=== PATIENT | female | born 1935 | race Caucasian/White ===

== ENCOUNTER 2020-05-29 12:29 | Inpatient (IN) | payer MEDICARE, BC ==
[2020-05-29] VITALS (8 sets, daily range): BP systolic 134–159; BP diastolic 43–98; PULSE 80–97; TEMP 98.7–99.8
[~2020-05-29] VITALS: Ht 154.9 cm; Wt 64.6 kg
--- NOTE | 2020-05-29 16:30 | NUR ---
Patient arrived to surgical floor via EMS. NG in place, placed to LIS, clear drainage with couldy brown strands immediately into suction cannister. Patient is dry heaving as the suction was unhooked during transport. Patient is alert and oriented. Patient is able to participate in admission assessment but cannot tell me what medications she takes and did not bring a medication list. Called patient's to get medications but he seemed unsure. Called patient's pharmacy and got a complete medication list.
[2020-05-29] MEDS ORDERED: KLOR-CON/EF25 MEQ PO (16:39)
[2020-05-29] MEDS ORDERED: ZOCOR 20MG20 MG PO (16:41)
[2020-05-29] MEDS ORDERED: ULTRAM 50MG TAB50 MG PO (16:42)
[2020-05-29] MEDS ORDERED: ZESTRIL 20MG TA20 MG PO (16:43)
[2020-05-29] MEDS ORDERED: PROAIR HFA0.09 MG/AC IH (17:12)
[2020-05-29] MEDS ORDERED: SYNTHROID0.075 MG/T PO (17:13)
[2020-05-29] MEDS ORDERED: NORVASC 10MG10 MG PO (17:14)
--- NOTE | 2020-05-29 17:45 | NUR ---
Patient left floor with pre op nurse via bed. Patient to OR for scheduled ex lap. Surgeon called patient's to inform him of planned procedure.
[2020-05-30] VITALS (8 sets, daily range): BP systolic 116–161; BP diastolic 37–59; PULSE 72–88; TEMP 98.1–100
[2020-05-30 07:14] LABS: ALBUMIN 3.4 gm/dL (3.5-5.0); BILIRUBIN,TOTAL 0.6 mg/dL (0.0-1.0); CALCIUM 8.3 mg/dL (8.4-10.2); CREATININE, serum 0.94 (0.52-1.25); POTASSIUM 4.1 mmol/L (3.4-5.0)
[2020-05-30 07:26] LABS: BASO % 0.1 % (0.0-2.0); GRAN # 11.6 (1.4-6.5); GRAN % 85.4 % (42.2-75.2); HEMOGLOBIN 11.6 g/dl (12.5-16.0); LYMPH # 0.8 (1.2-3.4); LYMPH % 5.9 % (20.0-51.0); MEAN CELL VOLUME 85 fl (80.0-100.0); MEAN CORPUSCULAR HEMOGLOBIN 27 pg (27.0-31.0); MEAN CORPUSCULAR HGB CONC 32 g/dl (33.0-37.0); MEAN PLATELET VOLUME 11.3 fl (7.4-10.4); MONO # 1.1 (0.1-0.6); MONO % 8.2 % (1.7-9.3); PLATELET COUNT 211 K/mm3 (130-400); RED BLOOD COUNT 4.31 M/mm3 (4.10-5.30)
[2020-05-30 07:28] LABS: HEMATOCRIT 36.5 % (37.0-47.0)
--- NOTE | 2020-05-30 08:00 | NUR ---
Patient resting in bedside recliner at this time. Patient is dozing but rouses easily. IVF continue per order. Patient is NPO for ERCP at noon, AM medications held per hospitalist order. Patient denies needs at this time, call light within reach.
--- NOTE | 2020-05-30 08:00 | NUR ---
Patient resting in bed at this time. Patient is alert and oriented, answers questions appropriately. Epidural in place, patient reports that pain is controlled at this time. NG tube to left nare to LIS per order, no significant output since shift change. Patient reports that she is thirsty, provided mouth swabs and a small amount of water to moisten her mouth and informed patient that NPO order is still in place. Patient verbalized understanding and denies further needs at this time, call light within reach.
--- NOTE | 2020-05-30 10:07 | NUR ---
Recording Artist attented clinical rounds with the team. After rounds, SW met with the patient to complete initial intake. The patient lives in [place] with her , Juancarlos # [phone]. The patient's son is a source of support too. The patient uses a walker and her assist with showers. The patient is not interested in [facility] at this time. The patient's PCP is Dr. Leonardo and patient receives medications from [facility] in . The patient does not have advanced directives. The patient plans to return home at discharge with her providing transportation. VIOLA contacted Juancarlos to discuss this plan. He was in agreeance. PT is recommending home at this time. Will continue to monitor.
--- NOTE | 2020-05-30 12:32 | NUR ---
Patient off floor to endoscopy with periop staff via bed. Patient denied questions or needs.
--- NOTE | 2020-05-30 18:49 | NUR ---
Patient returned to floor from endoscopy at approximately 1340. Patient is alert and oriented and pain is well controlled. IVF continue per order. VS WNL. Patient tolerating clear liquids well, denies further needs at this time, call light within reach.
--- NOTE | 2020-05-30 19:15 | NUR ---
NG tube removed by surgeon late this morning. No nausea or vomiting reported. Patient has tolerated clear liquids well. Storm in place per order. Patient ambulated in halls with therapy. Patient denies further needs at this time, call light within reach.
--- NOTE | 2020-05-30 20:00 | NUR ---
PT IN BED. REPORTS GAS PAINS. HAS EPIDURAL INFUSING, HAS SL TO LEFT FOREARM, FLUSHES EASILY. WEARING OXYGEN AT 2L/NC. MIDLINE INCISION NOTED. IS ALERT AND ORIENTED X4.
--- NOTE | 2020-05-30 21:05 | NUR ---
PT AMBULATES IN HALLWAY WITH ASSIST OF ONE, GAIT BELT AND WALKER. EPIDURAL CATHETER INTACT, FOAM WITH DRY DRAINAGE.
[2020-05-31] VITALS (7 sets, daily range): BP systolic 118–140; BP diastolic 53–74; PULSE 77–123; TEMP 98.1–99.6
--- NOTE | 2020-05-31 04:30 | NUR ---
Pt awake, has pain in abdomen, re-oriented to use of Epidural.
--- NOTE | 2020-05-31 06:28 | NUR ---
Continues to moan out loud, reports "I just feel blah". No specific complaint, denies nausea and reports pain to left abdomen "just a little". Using Epidural pain button as needed.
[2020-05-31 06:40] LABS: BASO # 0.1 (0.0-0.2); BASO % 0.7 % (0.0-2.0); EOS # 0.1 (0.0-0.7); EOS % 0.8 % (0-4.0); GRAN # 5.3 (1.4-6.5); GRAN % 68.3 % (42.2-75.2); HEMOGLOBIN 10.6 g/dl (12.5-16.0); LYMPH # 1.5 (1.2-3.4); LYMPH % 19.3 % (20.0-51.0); MEAN CELL VOLUME 87 fl (80.0-100.0); MEAN CORPUSCULAR HEMOGLOBIN 27 pg (27.0-31.0); MEAN CORPUSCULAR HGB CONC 31 g/dl (33.0-37.0); MEAN PLATELET VOLUME 10.7 fl (7.4-10.4); MONO # 0.8 (0.1-0.6); MONO % 10.6 % (1.7-9.3); PLATELET COUNT 180 K/mm3 (130-400); RED BLOOD COUNT 3.98 M/mm3 (4.10-5.30); REDCELL DISTRIBUTION WIDTH-CV 14.2 % (11.5-14.5)
[2020-05-31 06:47] LABS: HEMATOCRIT 34.5 % (37.0-47.0)
[2020-05-31 06:49] LABS: CALCIUM 8.3 mg/dL (8.4-10.2); CREATININE, serum 0.89 (0.52-1.25); POTASSIUM 4.2 mmol/L (3.4-5.0)
--- NOTE | 2020-05-31 07:00 | NUR ---
Lying in bed with eyes open. Having minimal pain in lower abd. Patient has epidural, no redness/swelling/discharge at site, tape intact. Dressing to mid abd incision intact with old drainage noted through the dressing. Patient says that she has not been able to pass gas at this time. Denies any additional needs.
--- NOTE | 2020-05-31 09:21 | NUR ---
Patient ambulating in halls with PT and use of walker. Gait slow and steady. Patient grunts at times.
--- NOTE | 2020-05-31 09:49 | NUR ---
Initial visit; Patient thanked Picker for looking in on her and providing Spiritual Care. Following prayer patient was receptive to Picker contacting her religious letting them know of her hospitalization. Picker did so and also changed her Admission records Mandaen Preference from No Preference to Jainism.
--- NOTE | 2020-05-31 10:54 | NUR ---
Lying in bed with eyes open. Having some discomfort in abd. Asked patient if she has used her buttong for her epidural. Patient says that she has not and uses it at this time. Patient said she was having some nausea earlier but has resolved at this time. Patient denies additional needs.
--- NOTE | 2020-05-31 12:30 | NUR ---
Lying in bed with eyes closed. Patient has clear liquid lunch tray. Patient says that she does not have much of an appetite. Encourage patient to take in what she can take in but not to force it. Having minimal pain at this time. Patient repositioned in bed to comfortable position. Denies additional needs at this time.
--- NOTE | 2020-05-31 13:02 | NUR ---
Patient explains that cold liquids cause her stomach to increase in pain. Provided room temp water to the patient. Was nauseated when attempting to eat but better at this time. Having some pain in abd and will use the epidural pump as needed. Would like to allow stomach to settle at this time and then will go for a walk later. Denies additional needs.
--- NOTE | 2020-05-31 14:15 | NUR ---
PTin room to work with the patient.
--- NOTE | 2020-05-31 15:27 | NUR ---
Lying in bed in supine position with eyes closed. Respirations even and unlabored. No signs or symptoms of discomfort noted at this time.
--- NOTE | 2020-05-31 15:40 | NUR ---
Aide obtained vital signs via machine and pulse high per machine. This nurse manually counts radial pulse and gets 79 for heart rate. Patient says she is having minimal pain at this time, 2/10 in abd. Uses the epidural as needed. Says that she was able to take a little bit of a nap and is not feeling too bad at this time. Encouraged patient to cough and take deep breaths, patient does at this time. Patient declines any further needs or concerns at this time.
--- NOTE | 2020-05-31 18:00 | NUR ---
Sitting up in bed attempting to eat clear liquid dinner. Patient explains that she does not have much of an appetite. Explain that she does not have to force herself to eat all of the food. Patient says that she is done at this time. Patient continues to cough and deep breathe. Denies any additional needs or concerns at this time.
[2020-06-01] VITALS (7 sets, daily range): BP systolic 139–185; BP diastolic 54–73; PULSE 77–91; TEMP 98.7–100.3
--- NOTE | 2020-06-01 05:03 | NUR ---
Patient has rested well throughout the night. Midline incision is open to air. Pema are intact. No redness or drainage to site. Epidural continues. Patient denies pain. Bowel sounds are hypoactive. Denies gas. Storm continues to drain clear, yellow urine. Continues to cough and deep breathe as directed. Will continue to monitor patient.
[2020-06-01 06:39] LABS: BASO % 0.4 % (0.0-2.0); EOS # 0.1 (0.0-0.7); EOS % 0.7 % (0-4.0); GRAN # 5.2 (1.4-6.5); GRAN % 74.6 % (42.2-75.2); HEMATOCRIT 37.7 % (37.0-47.0); HEMOGLOBIN 11.6 g/dl (12.5-16.0); LYMPH # 0.9 (1.2-3.4); LYMPH % 12.6 % (20.0-51.0); MEAN CELL VOLUME 86 fl (80.0-100.0); MEAN CORPUSCULAR HEMOGLOBIN 26 pg (27.0-31.0); MEAN CORPUSCULAR HGB CONC 31 g/dl (33.0-37.0); MEAN PLATELET VOLUME 10.8 fl (7.4-10.4); MONO # 0.8 (0.1-0.6); MONO % 11.4 % (1.7-9.3); PLATELET COUNT 209 K/mm3 (130-400); RED BLOOD COUNT 4.39 M/mm3 (4.10-5.30); REDCELL DISTRIBUTION WIDTH-CV 13.9 % (11.5-14.5)
[2020-06-01 06:49] LABS: CALCIUM 8.4 mg/dL (8.4-10.2); CREATININE, serum 0.96 (0.52-1.25); POTASSIUM 4.6 mmol/L (3.4-5.0)
--- NOTE | 2020-06-01 10:16 | NUR ---
Management Specialist met with the patient to discuss HHS. VIOLA presented Medicare.gov's list of hydrogeology professor in the [place] area. The patient chose [facility] [facility]. VIOLA faxed referral. VIOLA presented the IM form to the patient. The patient understood and gave VILOA permission to sign the form. A copy was provided to the patient and the original was placed in the chart.
--- NOTE | 2020-06-01 11:00 | NUR ---
Patient has been very naueous this morning. She has been given zofran and reglan. The reglan seems to be working better. She was finally resting comfortably after getting it. Her IV infiltrated this morning. New IV started to left forearm. Pema to abdomen are intact. No reddness, no drainage to incision. Storm secured to leg, urine yellow and clear, output continues to be low. Minimal complaints of pain, she stated her pain has been controlled with the epidural. No other changes at this time. Call light within reach.
--- NOTE | 2020-06-01 18:30 | NUR ---
Patient is finally resting. Her nausea has been better since getting phenergan. She has been made NPO. Her urine output has been 450 out this shift. Her pain continues to be controlled with the epidural. She did not get up today because she did not think could tolerate it. No other changes at this time. Call light within reach.
[2020-06-02] VITALS (68 sets, daily range): BP systolic 119–183; BP diastolic 56–89; PULSE 64–135; TEMP 98–99.9; O2SAT 87–96
--- NOTE | 2020-06-02 03:34 | NUR ---
Pt is currently back in bed. Pt did call a little while ago and requested to sit on the toliet. Pt has been given nausea medication when she was able. Pt has complained of alot of stomach pain and she has had nausea and has been vomitting. Pt has been given all that she can have for nausea medication. Pt is still stated that she has never had so much pain and felt so bad. Pt was encouraged to press her pain button when she feels that she needs it for pain. Pt has her call light [employer]. She was informed that I would contact the hospitalist to inform her about the change in the pts condition.
--- NOTE | 2020-06-02 04:38 | NUR ---
Contacted Emily the hospitalist and she came to assesst he pt. The pt was complaining of upper abdomen pain and she has having a lot of nausea throughout the night. After trying all that she could have for nausea and trying a cool pack and a warm blanket on her abdomen, nothing seemed to be helping. Emily contacted Dr. Gordon and she ordered a NG tube to be placed at this time, a 14 fr NG was placed. As of this time which is 0440 there is 450cc in the canister. Pt did not tolerated the NG placement. She did state that it was very painful. Pt also has an order for a CT of the abdomen this morning. I called Radiology and once they are able I will transport pt down to have the CT done. Pt has been informed of everything that has been done and what the plan is for now. Pt has her call light and her pain button wtihin reach at this time.
[2020-06-02 05:09] LABS: BASO % 0.3 % (0.0-2.0); GRAN # 12.4 (1.4-6.5); GRAN % 89.8 % (42.2-75.2); HEMATOCRIT 38.8 % (37.0-47.0); HEMOGLOBIN 12.6 g/dl (12.5-16.0); LYMPH # 0.5 (1.2-3.4); LYMPH % 3.8 % (20.0-51.0); MEAN CELL VOLUME 85 fl (80.0-100.0); MEAN CORPUSCULAR HEMOGLOBIN 28 pg (27.0-31.0); MEAN CORPUSCULAR HGB CONC 33 g/dl (33.0-37.0); MEAN PLATELET VOLUME 10.1 fl (7.4-10.4); MONO # 0.8 (0.1-0.6); MONO % 5.7 % (1.7-9.3); PLATELET COUNT 245 K/mm3 (130-400); RED BLOOD COUNT 4.58 M/mm3 (4.10-5.30); REDCELL DISTRIBUTION WIDTH-CV 13.5 % (11.5-14.5)
[2020-06-02 05:11] LABS: GASTROCCULT POSITIVE; pH GASTRIC CONTENTS 1
[2020-06-02 05:17] LABS: CALCIUM 8.4 mg/dL (8.4-10.2); CREATININE, serum 0.88 (0.52-1.25); POTASSIUM 3.5 mmol/L (3.4-5.0)
--- NOTE | 2020-06-02 06:18 | NUR ---
Pt is currently back in her room. Pt was taken down for a CT of the abdomen. Pt has had a total of 850 out of her NG tube. Pt is currently resting in her bed. She has her call light within reach and her bed is in lowest position.
--- NOTE | 2020-06-02 09:34 | NUR ---
Psychiatric Registered Nurse attended clinical rounds with the team. The patient had an NG tube placed. Will continue to monitor.
--- NOTE | 2020-06-02 10:04 | NUR ---
Patients heart is irregular this morning. Called for an EKG, notified Dr Gonzales. EKG showed AFIB with RVR. Order for cardiology consult done, Dr Claros notified. Patient is being started on telemetry. Dr Claros will come see the patient later this morning. Patient denies any symptoms, denies chest pain. No other changes at this time. NG still to low intermitten suction. Drainage is dark green. Patients abdomen is less distended today. She is resting comfortably at this time. Call light within reach.
--- NOTE | 2020-06-02 19:00 | NUR ---
Patient has been doing well this afternoon. SHe is getting potassium replacement IV. She got a PICC line with intentions to get TPN tomorrow. Patient has not epidural discontinued. IVF's infusing. She had 700ml of dark green drainage out this shift. Denies nausea. Explained to notify us she starts to have pain. She is passing flatus this afternoon. While giving bedside shift report she would like to try having a bowel movement. The RETIREMENT SPECIALIST's are helping her. Dr Claros has not seen patient yet, he was in the hospital earlier but did not stop in her room. Attempted to call again but did not get a hold him. She continues to be in afib. PRN dose of metoprolol given once this afternoon as ordered for heart rate of 125. No other changes at this time. Call light within reach.
--- NOTE | 2020-06-02 19:43 | NUR ---
Pt valentineetnly resting in bed. Pt heart rate has been up to 150 she is currentlly at 135. Dr. Rhodes was just notitifed he informed me that he would get back to me on her. Pt has her call light within reach and her bed is in lowest position.
--- NOTE | 2020-06-02 19:50 | NUR ---
Received report from ERAN Calderon. Pt currently sitting up and bed and has not compalints at this time Pt has her call light wtihin reach and her bed is in lowest position.
--- NOTE | 2020-06-02 20:03 | NUR ---
Report was given by ERAN Calderon. Pt is currently lying in bed. Pt has her call light and her bed is in lowest position. Pt stated that she feels much better today.
--- NOTE | 2020-06-02 20:50 | NUR ---
Pt heart rate on the tele monitor was noted to be in the 150's and back down to like 118. Dr. Claros was contacted at this time to update him on the pts status.
--- NOTE | 2020-06-02 21:22 | NUR ---
RECEIVED REPORT FROM ERAN GOEL FROM SURGICAL. AWAITING ARRIVAL OF PT TO ICU 8.
--- NOTE | 2020-06-02 21:41 | NUR ---
SPOKE TO DR KHAN FOR CLARIFICATION ON AMIO GTT ORDERS, SEE MAR.
--- NOTE | 2020-06-02 21:44 | NUR ---
Pt is currently sitting up in bed. Pt was contacted and I informed him on her status and that she would be transfered to ICU. Pt was also informed about the changes in her status and why she was being transferred. Pt currently has a mendoza in place with yellow clear urine. Pt NG tube is in place and its hooked up to low intermittent suction. Pt has had one bowel movement since the shift has begin. Dr. Claros was contacted and he wanted her MICU status. tumblers supervisor has also contacted him. Report was given to ERAN Carlin down in ICU. I did inform her to verify all orders with Dr. Claros. Pt will be transferred soon pt is currently using the restroom. Pt has been a two person assists cherelle.
--- NOTE | 2020-06-02 22:30 | NUR ---
Pt belongings were gathered and pt was getting ready to be transferred to ICU. Pt was a little sad when thinking of all that has changed in the last couple of days. I informed the pt that I did speak with her and he knows that she will be transferred. Pt was undpated on all that we will do to get her transferred. Pt has new sheets and applied to her bed at this time. Pt feels better know and is ready to transfer. Atif Rausch RN helped the aide to transport pt to ICU.
--- NOTE | 2020-06-02 22:45 | NUR ---
PT ARRIVES TO ICU 8 VIA STRETCHER ON RA AND TRASNFERS X2 ASSIST TO ICU BED, SLOW STEADY GAIT NOTED. PT DOES C/O LEFT LEG BEING WEAK AND THIGH ACHY. NOTED MIDLINE INCISION NO REDNESS OR DRAINAGE AND BETSEY INTACT. AMIO BOLUS STARTED WITH TWO RN VERIFICATION WITH ERAN COATES. PT PLACED ON BEDSIDE CONTINUOUS MONITOR. PT EDUCATED ON TRANSFER, AMIO, AND CALL LIGHT. VERBALIZED UNDERSTANDING. PT DOES C/O SOME PAIN IN ABDOMEN /10 BUT STATES IS TOLERABLE. FC PATENT AND DRAINING TO GRAVITY. SCDs IN PLACE. PT CHANGED TO YELLOW GOWN AND FALL RISK SIGN AND BRACELET IN PLACE. NOTED HR TO BE IRREGULAR FROM 120/140s AT THIS TIME. PT STATES THAT SHE DOES NOT FEEL IT. WILL MONITOR CLOSELY. NGT TO LT NARE AT 55 CM PLACED TO LIS.
--- NOTE | 2020-06-02 23:15 | NUR ---
PT PLACED ON 2L VIA NC. POX WAS DROPPING TO 88% WHILE PT WAS TRYING TO REST, POX INCREASES TO 95% WITH O2.
[2020-06-03] VITALS (811 sets, daily range): BP systolic 132–164; BP diastolic 64–78; PULSE 62–103; TEMP 97.7–99; O2SAT 86–100
--- NOTE | 2020-06-03 00:15 | NUR ---
PER MT, PT HAS CONVERTED TO SR IN THE 70s. PT REMAINS ASLEEP AT THIS TIME. NO ACUTE S/S OF DISTRESS NOTED. VSS.
--- NOTE | 2020-06-03 05:20 | NUR ---
NOTED WITH [facility] AFTER WASTIN 20ML, SOME WHITE PARTICLES FLOATING IN BLOOD SAMPLE, DISCUSSED WITH DR LEE WITH IN[facility], NEW ORDER RECEIVED.
[2020-06-03 05:32] LABS: BASO % 0.3 % (0.0-2.0); EOS % 0.3 % (0-4.0); GRAN # 8.4 (1.4-6.5); GRAN % 77.9 % (42.2-75.2); LYMPH # 1.1 (1.2-3.4); LYMPH % 9.8 % (20.0-51.0); MEAN CELL VOLUME 85 fl (80.0-100.0); MEAN CORPUSCULAR HEMOGLOBIN 27 pg (27.0-31.0); MEAN CORPUSCULAR HGB CONC 32 g/dl (33.0-37.0); MEAN PLATELET VOLUME 10.4 fl (7.4-10.4); MONO # 1.2 (0.1-0.6); MONO % 11.3 % (1.7-9.3); PLATELET COUNT 207 K/mm3 (130-400); REDCELL DISTRIBUTION WIDTH-CV 13.4 % (11.5-14.5)
[2020-06-03 05:33] LABS: HEMATOCRIT 34.7 % (37.0-47.0)
[2020-06-03 05:40] LABS: CALCIUM 7.9 mg/dL (8.4-10.2); CREATININE, serum 0.77 (0.52-1.25); POTASSIUM 3.7 mmol/L (3.4-5.0)
[2020-06-03 07:28] LABS: CHOLESTEROL 102 mg/dL (120-200); TRIGLYCERIDE 97 mg/dL
--- NOTE | 2020-06-03 11:09 | NUR ---
Initial visit; Patient thanked Collaborative Physician for looking in on her and offering encouragement, comfort and prayer.
--- NOTE | 2020-06-03 11:35 | NUR ---
PT is now recommmending home if able. OT is recommending that the patient will likely require post-acute rehab. VIOLA met with the patient and the patient's , Juancarlos, to discuss this. Juancarlos reports that the patient has been wobbling while walking. The patient and her report that they hope to be able to safely return home, but would be agreeable to post-acute rehab if she does not make progress. The patient and her prefer [facility]. They did not have a second preference at this time and would like some time to think about their second preference. SW contacted and faxed a referral to Regina at [facility]. SW awaiting their screen and will continue to follow.
[2020-06-03 12:01] LABS: ALBUMIN 2.9 gm/dL (3.5-5.0); BILIRUBIN,TOTAL 0.7 mg/dL (0.0-1.0); CALCIUM 8.1 mg/dL (8.4-10.2); CREATININE, serum 0.79 (0.52-1.25); PHOSPHOROUS 2.9 mg/dL (2.5-4.5); POTASSIUM 3.8 mmol/L (3.4-5.0); TOTAL PROTEIN 5.2 gm/dL (6.4-8.2)
[2020-06-03 12:08] LABS: PRE ALBUMIN 9.3 mg/dL (17.6-36.0)
--- NOTE | 2020-06-03 14:32 | NUR ---
Regina, at [facility], reports that they would be able to accept the patient for a skilled stay and that they would not require a COVID test. Regina states that they do a COVID test on the patient when they arrive to their facility. Regina reports that they would require a DPOA-HC, if the patient is unable to sign for her own paperwork. VIOLA attempted to meet with the patient to update and discuss a DPOA-HC. The patient had a puke bag up to her mouth and was moaning. SW to follow up with her at a later time. VIOLA then contacted and updated the patient's , Juancarlos. Juancarlos reports that his does not need to be getting intensive therapy and can do exercises at home. He states that they really are not interested in post-acute rehab now. VIOLA discussed how we can keep [facility] updated, in the event that the patient is not safe to return home. The patient's was agreeable to this, but reports that he would like for her to return home with him. SW to continue to follow.
--- NOTE | 2020-06-03 15:08 | NUR ---
Disposal Plant Operator updated Ingrid PARTIDA on patient status.
--- NOTE | 2020-06-03 19:05 | NUR ---
RECEIVED REPORT FROM ERAN AMAYA. PT SLEEPING AT THIS TIME ON 3L VIA NC. FC PATENT AND DRAINING TO GRAVITY. CALL LIGHT WITHIN REACH. VSS.
[2020-06-04] VITALS (713 sets, daily range): BP systolic 120–168; BP diastolic 61–78; PULSE 59–78; TEMP 97.8–98.8; O2SAT 85–100
[2020-06-04 05:19] LABS: CALCIUM 7.8 mg/dL (8.4-10.2); CREATININE, serum 0.76 (0.52-1.25); MAGNESIUM 2.1 mg/dL (1.6-2.3); PHOSPHOROUS 2.6 mg/dL (2.5-4.5)
--- NOTE | 2020-06-04 19:05 | NUR ---
RECEIVED REPORT FROM ERAN FLORES. PT SITTING UP IN RECLINER ON 3L VIA NC. VSS. CALL LIGHT WITHIN REACH. FC PATENT AND DRAINING TO GRAVITY. NOTED NGT TO LT NARE AT 55 CM, CLAMPED.
--- NOTE | 2020-06-04 19:44 | NUR ---
BLISTERS UP TOP OF RT BUTTOCK BUSTED OPEN WHEN PT SAT DOWN ONTO BSC. PATTED DRY AND AQUECELL DRESSING IN PLACE AT THIS TIME.
[2020-06-05] VITALS (330 sets, daily range): BP systolic 131–159; BP diastolic 54–84; PULSE 61–78; TEMP 97.7–98.7; O2SAT 92–99
[2020-06-05 05:59] LABS: CALCIUM 7.4 mg/dL (8.4-10.2); CREATININE, serum 0.72 (0.52-1.25); MAGNESIUM 2.2 mg/dL (1.6-2.3); PHOSPHOROUS 3.7 mg/dL (2.5-4.5); POTASSIUM 4.1 mmol/L (3.4-5.0)
--- NOTE | 2020-06-05 14:40 | NUR ---
REPORT GIVEN TO ERAN LEÓN ON SURGICAL FLOOR. PATIENT TAKEN UP TO SURGICAL ROOM 347
--- NOTE | 2020-06-05 14:45 | NUR ---
Received patient from ICU. Alert. Hard of hearing. No c/o pain or nausea. NG clamped. TPN infusing per right PICC.
--- NOTE | 2020-06-05 16:45 | NUR ---
KORINA wallace. MAURICE núñez per order from Dr. Carmen.
--- NOTE | 2020-06-05 18:00 | NUR ---
Ambulatory with assist to bathroom for bowel movement.
--- NOTE | 2020-06-05 21:00 | NUR ---
PT HAS INCONTINENT STOOL IN BED. PATIENT UPSET THAT SHE WASN'T ABLE TO CONTROL IT. BARAKAT CATHETER IN PLACE WITH YELLOW URINE DRAINING. HAS RT PICC WITH TPN INFUSING. ABDOMEN WITH ACTIVE BOWEL SOUNDS, SMALL MIDLINE WITH BETSEY INTACT. HS MEDS GIVEN. DENIES PAIN AT THIS TIME.
[2020-06-06] VITALS (7 sets, daily range): BP systolic 139–158; BP diastolic 50–57; PULSE 65–75; TEMP 97.8–98.7
--- NOTE | 2020-06-06 01:20 | NUR ---
PT YELLING FOR HELP, STANDING AT BEDSIDE, NEEDS TO HAVE BM. ASSISTED TO BSD. HAS SMALL SOFT BM, BACK TO BED WITH HELP. COMPLAINS OF ABDOMINAL PAIN, MEDICATED WITH MORPHINE 4MG IVP FOR PAIN 05/06.
--- NOTE | 2020-06-06 05:02 | NUR ---
Pt in bed, denies pain. TPN infusing per PICC. No further BM's.
--- NOTE | 2020-06-06 06:00 | NUR ---
Pt up to BSC for small loose BM.
[2020-06-06 06:56] LABS: CALCIUM 7.7 mg/dL (8.4-10.2); CREATININE, serum 0.76 (0.52-1.25); MAGNESIUM 2.2 mg/dL (1.6-2.3); PHOSPHOROUS 3.1 mg/dL (2.5-4.5); POTASSIUM 3.9 mmol/L (3.4-5.0)
--- NOTE | 2020-06-06 08:40 | NUR ---
Patient in bed resting. Alert and oriented. Assesssment complete. PICC line to [place] without complications, TPN infusing per orders. Midline incision with tatyana intact. Patient states mid epigastric discomfort when taking PO fluids. Storm to dependent drainage with clear yellow urine in bag. Patient on 1.5 of oxygen via NC. Denies further needs at this time.
--- NOTE | 2020-06-06 09:00 | NUR ---
Patient up to BSC with x 1 assist. States she feels like she needs to go to the restroom or pass gas. Was unable to do so. Smears noted. No further needs at this time.
--- NOTE | 2020-06-06 09:57 | NUR ---
Hot Dip Galvanizer attended clinical rounds with the team. The patient's was present. After rounds, SW met with the patient and the patient's to revisit the discharge plan. The patient and her would rather go home with [facility] and not SNF at [facility]. Will continue to follow.
--- NOTE | 2020-06-06 10:13 | NUR ---
Patient sitting up in recliner, spouse at bedside.
--- NOTE | 2020-06-06 12:20 | NUR ---
Patient up to bedside comode, small loose BM
--- NOTE | 2020-06-06 12:40 | NUR ---
Patient refusing lunch, States that her taking po other than water is the reason she is having diarrhea.
--- NOTE | 2020-06-06 13:59 | NUR ---
Patient resting in bed. Denies further needs at this time.
--- NOTE | 2020-06-06 16:05 | NUR ---
Patient in bed resting. Denies further needs at this time.
--- NOTE | 2020-06-06 16:09 | NUR ---
Ems Educator updated Portia with Ingrid PARTIDA.
--- NOTE | 2020-06-06 17:11 | NUR ---
Patient up to [facility], had medium soft formed stool. Encouraged patient to attempt increase oral intake.
--- NOTE | 2020-06-06 18:31 | NUR ---
Patient has done well throughout the day. Continues to deny pain. Patient repositions in bed independently. Has been up to commode multiple times today. TPN continues to infuse per orders. Storm maintained to dependent drainage. Denies further needs at this time. Will report off to receptionist/telephone operator.
--- NOTE | 2020-06-06 19:59 | NUR ---
Received report from ERAN Baron. Pt lying in bed awake pt has call light within reach and her bed is in lowest position.
[2020-06-07 04:01] VITALS: BP 138/84; PULSE 74; TEMP 98.1
--- NOTE | 2020-06-07 04:50 | NUR ---
Pt is currently sleeping in bed. Pt has not comlained of any pain throughout the shift. Pt has been up a couple of times to use the bedside commode. Pt has her call light within reach.
--- NOTE | 2020-06-07 07:13 | NUR ---
Lying in bed with eyes open. Denies pain. Explains that she had a loose BM in her brief that she could not control. Reassurance provided and patient cleaned at this time. Storm to dependent drainage draining clear yellow urine. Mid abd incision with tatyana intact, edges well approximated, no redness/swelling/discharge. Patient does have a area to right lower back covered with a Mepilex. Patient denies additional needs at this time.
--- NOTE | 2020-06-07 07:17 | NUR ---
Reported off to ERAN Carvalho. Pt is currently awake in bed. Pt was assisted with getting cleaned up in bed. Pt is currently lying in bed and her call light is within reach.
[2020-06-07 07:41] LABS: CALCIUM 7.5 mg/dL (8.4-10.2); CREATININE, serum 0.73 (0.52-1.25); MAGNESIUM 2.2 mg/dL (1.6-2.3); PHOSPHOROUS 3.4 mg/dL (2.5-4.5); POTASSIUM 3.6 mmol/L (3.4-5.0)
[2020-06-07 07:54] VITALS: BP 139/51; PULSE 61; TEMP 99.3
--- NOTE | 2020-06-07 09:16 | NUR ---
Sitting up in bed talking with . Voices no further needs at this time.
--- NOTE | 2020-06-07 10:20 | NUR ---
Sitting up in chair with eyes open, spouse in room with the patient. ELVIA Phillip, in to see the patient. Encouraged use of incentive spirometer, patient shows proper use of incentive spirometer. Mid abd incision with edges well approximated, no redness/swelling/discharge. Site cleaned with alcohol pads. Removed 13 tatyana without difficulty. Patient tolerates well. Denies any additional needs at this time.
[2020-06-07 12:13] VITALS: BP 137/54; PULSE 68; TEMP 99
--- NOTE | 2020-06-07 12:14 | NUR ---
Sitting up in chair. Able to tolerate about 20% of low fiber lunch. Remains sitting up in chair at this time, spouse remains with patient. Patient denies any additional needs at this time.
--- NOTE | 2020-06-07 12:22 | NUR ---
First visit from the headlight adjuster. No needs right now.
--- NOTE | 2020-06-07 15:55 | NUR ---
Patient assisted back to bed. Denies pain at this time. Warm blankets provided. Patient denies additional needs at this time.
[2020-06-07 16:38] VITALS: BP 169/55; PULSE 72; TEMP 98.9
--- NOTE | 2020-06-07 17:21 | NUR ---
Patient up to BSC. Had medium loose brown stool. Patient straining to have bowel movement and small rectal prolapse noted. Pushed back into rectum. Explain to the patient to not strain when having bowel movements as it is causing her to develop a prolapse. Patient voices understanding. Assisted back to bed into comfortable position. Denies additional needs at this time.
[2020-06-07 19:21] VITALS: BP 161/47; PULSE 72; TEMP 98.3
[2020-06-07 23:22] VITALS: BP 137/51; PULSE 59; TEMP 98.2
--- NOTE | 2020-06-08 02:42 | NUR ---
Patient has rested well throughout the night. Complained of pain 6/10 at the beginning of the shift and PRN Morphine administered. This was effective. PICC line to [place] continues to have TPN infusing. Mepilex noted to left back. Patient continues on 1L of oxygen via nasal cannula. Storm catheter continues to drain clear, yellow urine. Midline incision appears to be healing well. [place] have been removed. Patient takes medications one at a time with water. No difficulties noted. Will continue to monitor patient.
[2020-06-08 03:25] VITALS: BP 149/51; PULSE 67; TEMP 98.3
[2020-06-08 06:37] LABS: MEAN CELL VOLUME 85 fl (80.0-100.0); MEAN CORPUSCULAR HGB CONC 31 g/dl (33.0-37.0); MEAN PLATELET VOLUME 10.7 fl (7.4-10.4); PLATELET COUNT 275 K/mm3 (130-400); RED BLOOD COUNT 3.55 M/mm3 (4.10-5.30)
[2020-06-08 06:39] LABS: HEMATOCRIT 30.1 % (37.0-47.0); HEMOGLOBIN 9.4 g/dl (12.5-16.0); MEAN CORPUSCULAR HEMOGLOBIN 26 pg (27.0-31.0)
[2020-06-08 06:51] LABS: ALBUMIN 2.6 gm/dL (3.5-5.0); BILIRUBIN,TOTAL 0.3 mg/dL (0.0-1.0); CALCIUM 7.4 mg/dL (8.4-10.2); CREATININE, serum 0.71 (0.52-1.25); MAGNESIUM 2.2 mg/dL (1.6-2.3); PHOSPHOROUS 3.7 mg/dL (2.5-4.5); POTASSIUM 3.8 mmol/L (3.4-5.0)
[2020-06-08 06:58] LABS: PRE ALBUMIN 12.9 mg/dL (17.6-36.0)
[2020-06-08 07:52] LABS: BAND 5 % (0-10); BURR CELLS 1+; EOSINOPHIL 5 % (0-4); HYPOCHROMIA 1+; LYMPHOCYTE 29 % (20.0-51.0); METAMYELOCYTE 1 % (0-0); NEUTROPHILS 56 % (42.0-75.2); PLATELET ESTIMATE NORMAL (NORMAL); SCHISTOCYTES 1+
[2020-06-08 07:54] VITALS: BP 137/64; PULSE 60; TEMP 98.3
--- NOTE | 2020-06-08 08:23 | NUR ---
Patient assisted up to chair, she had a little breakfast. She is weak. She is feeling "bloated" this am. She is belching. Her abdomen is distented, bowel sounds heard. midline incision edges well approximated. Scds. Air mattress applied to bed, heel protectors provided, skin integrety a concern. Dyspnea with exertion & at rest. O2 on. Picc to Rue with Tpn per orders. Tele on Vss. rounded & plan of care reviewed. Will closely monitor
--- NOTE | 2020-06-08 09:55 | NUR ---
Insurance Claims Specialist faxed updates to Regina at [facility].
--- NOTE | 2020-06-08 10:00 | NUR ---
Geropsychologist met with the patient and her , Juancarlos. They are refusing the hospitalist recommendation of post acute rehab. The patient states her son and daughter live two blocks from their home and they assist. They state that last time the patient was in rehab she was in tears because it was so bad and will not return. They were agreeable to [facility]. Will continue to monitor.
[2020-06-08 11:34] VITALS: BP 146/62; PULSE 62; TEMP 97.9
--- NOTE | 2020-06-08 12:21 | NUR ---
Patient sitting up in chair, eating lunch. Her at bedside. Social work has rounded & discussed discharge planning. No interest in a rehab facility, they want to discharge home.
[2020-06-08 15:44] VITALS: BP 131/44; PULSE 65; TEMP 98.1
--- NOTE | 2020-06-08 16:20 | NUR ---
Patient has been up to the bathroom. Steady gait with walker. Spoke with Hospitalist Uriel Suarez. Ultram orders for pain. Storm to be removed once 24hr urine collected. Patient ambulated the halls this afternoon with o2. dyspnea with exertion, she expressed she felt like she ran 10 miles. Will monitor.
[2020-06-08 18:09] LABS: 12 HR URINE TOTAL VOLUME 0.38 L
--- NOTE | 2020-06-08 19:06 | NUR ---
Patient resting in chair. She was up to the bathroom. passed flatus, no stool. Patient mendoza was removed per orders once 24 hours urine completed. Patient had minimal interest in dinner. Encouraged her to drink ensure. Bedside report to Jessica Lugo
[2020-06-08 20:22] VITALS: BP 138/49; PULSE 60; TEMP 98.5
[2020-06-09 00:04] VITALS: BP 154/50; PULSE 61; TEMP 97.9
[2020-06-09 04:11] VITALS: BP 140/51; PULSE 66; TEMP 97.8
--- NOTE | 2020-06-09 04:35 | NUR ---
Patient has rested well throughout the night. During assessment, patient noted to be alert and oriented. She called out and requested help getting into bed. When this nurse came into her room, patient stated that everyone had left her and that she didn't know what to do. This nurse reoriented patient and assisted her into bed. Gait noted to be slow and steady. Utilizes walker for ambulation. Able to use the restroom independently and demonstrates correct marisel-care. Patient noted to grimace when ambulating, but refuses pain medication when offered. Bed alarms on d/t intermittent confusion. Will continue to monitor.
[2020-06-09 06:38] LABS: MEAN CELL VOLUME 85 fl (80.0-100.0); MEAN CORPUSCULAR HGB CONC 32 g/dl (33.0-37.0); MEAN PLATELET VOLUME 10.3 fl (7.4-10.4); PLATELET COUNT 302 K/mm3 (130-400); RED BLOOD COUNT 3.64 M/mm3 (4.10-5.30); REDCELL DISTRIBUTION WIDTH-CV 14.5 % (11.5-14.5)
[2020-06-09 06:39] LABS: HEMOGLOBIN 9.8 g/dl (12.5-16.0); MEAN CORPUSCULAR HEMOGLOBIN 27 pg (27.0-31.0)
[2020-06-09 06:51] LABS: CALCIUM 7.7 mg/dL (8.4-10.2); CREATININE, serum 0.72 (0.52-1.25); POTASSIUM 4.3 mmol/L (3.4-5.0)
[2020-06-09 07:38] LABS: BAND 9 % (0-10); EOSINOPHIL 4 % (0-4); LYMPHOCYTE 22 % (20.0-51.0); METAMYELOCYTE 2 % (0-0); NEUTROPHILS 54 % (42.0-75.2); PLATELET ESTIMATE NORMAL (NORMAL)
[2020-06-09 08:04] VITALS: BP 129/46; PULSE 61; TEMP 97.9
[2020-06-09] MEDS ORDERED: ELIQUIS 2.5 PO (08:47)
[2020-06-09] MEDS ORDERED: CORDARONE200 MG/TAB PO (08:48)
[2020-06-09] MEDS ORDERED: ULTRAM 50MG TAB50 MG PO (08:49)
--- NOTE | 2020-06-09 09:30 | NUR ---
Patient alert and oriented, answers questions appropriately. See assessment. Abdomen soft, non tender, non distended. Bowel sounds active x4 quads. +Flatus. +Bowel movement. Urinating adequate amounts. Abdominal incisions with edges well approximated, no redness or drainage noted. Post op exercises reviewed with patient. No c/o at this time.
--- NOTE | 2020-06-09 09:34 | NUR ---
The patient is to discharge home today, 06/09 with [facility] and receiving PT/OT/Nursing services. VIOLA presented the IM form to the patient. She understood and gave VIOLA permission to sign on her behalf. A copy was provided to the patient and the original was placed in the chart. VIOLA faxed orders to Portia at [facility]. There are no additional needs at this time.
--- NOTE | 2020-06-09 12:48 | NUR ---
Discharge instructions reviewed with patient and spouse, verbalized understanding. Discharged via wheelchair to auto/home with spouse at 1200.
== END 2020-06-09 12:00 | disposition home health service (06) | DRG 336 ==
LOC: MEDICAL 12:29 → SURG 15:10 → ICU 06-02 21:20 → SURG 06-05 14:57
PROVIDERS: Dietitian, Registered; Internal Medicine Critical Care Medicine; Internal Medicine Interventional Cardiology; Nurse Practitioner Family; Physician Assistant; Student in an Organized Health Care Education/Training Program; Surgery; ADMIT Internal Medicine
PROC: 0DNW0ZZ Release Peritoneum, Open Approach (ICD-10-PCS; principal; 2020-05-29 18:30)
PROC: 3E0436Z Introduction of Nutritional Substance into Central Vein, Percutaneous Approach (ICD-10-PCS; 2020-06-02)
PROC: 02HV33Z Insertion of Infusion Device into Superior Vena Cava, Percutaneous Approach (ICD-10-PCS; 2020-06-02)
DX: K56.52 Intestinal adhesions [bands] with complete obstruction (principal); E44.0 Moderate protein-calorie malnutrition; I48.91 Unspecified atrial fibrillation; I10 Essential (primary) hypertension; E78.5 Hyperlipidemia, unspecified; J45.909 Unspecified asthma, uncomplicated; N63.0 Unspecified lump in unspecified breast; Z66 Do not resuscitate; E03.9 Hypothyroidism, unspecified; F41.9 Anxiety disorder, unspecified; K59.00 Constipation, unspecified; K56.7 Ileus, unspecified; Z85.43 Personal history of malignant neoplasm of ovary; Z90.710 Acquired absence of both cervix and uterus; Z90.49 Acquired absence of other specified parts of digestive tract; Z88.2 Allergy status to sulfonamides; Z88.0 Allergy status to penicillin; Z88.5 Allergy status to narcotic agent; Z88.1 Allergy status to other antibiotic agents
CPT/HCPCS: 99223-AI; 99231-AI; 99232-AI; 99233-AI; 99239; A4314; A9284; C1751; J0282; J0610; J0690; J1650; J2060; J2250; J2270; J2405; J2550; J2704; J2710; J2765; J2920; J3010; J3411; J3475; J3480; J7030; J7060; J7120; J7131; Q9967

== ENCOUNTER 2023-02-26 10:37 | Emergency (ER) | payer MEDICARE, BC ==
[~2023-02-26] VITALS: Ht 152.4 cm; Wt 46.8 kg
[~2023-02-26 10:37] MED LIST: CORDARONE200 MG/TAB PO; ELIQUIS 2.5 PO; KLOR-CON/EF25 MEQ PO; NORVASC 10MG10 MG PO; PROAIR HFA0.09 MG/AC IH; SYNTHROID0.075 MG/T PO; ULTRAM 50MG TAB50 MG PO; ZESTRIL 20MG TA20 MG PO; ZOCOR 20MG20 MG PO
[2023-02-26 10:53] VITALS: TEMP 97.9
[2023-02-26] MEDS ORDERED: ZOFRAN ODT4 MG PO (15:08)
[2023-02-26] MEDS ORDERED: NORCO 325 MG-51 TAB PO (15:08)
[2023-02-26 15:32] VITALS: BP 106/60; PULSE 50
[2023-02-26 16:09] LABS: COLLECTION METHOD CLEAN CATCH
[2023-02-26 16:10] LABS: URINE APPEARANCE Clear (CLEAR/HAZY); URINE BLOOD 2+ (NEGATIVE); URINE COLOR Yellow (YELLOW); URINE GLUCOSE Negative (NEGATIVE); URINE KETONE 1+ (NEGATIVE); URINE NITRATE Negative (NEGATIVE); URINE PROTEIN(semi-quant) 1+ (NEGATIVE)
[2023-02-26 16:12] LABS: MUCOUS Present (NOT PRESENT); URINE RBC 20-50 /hpf (0-2)
[2023-02-26 16:15] LABS: BASO % 0.4 % (0.0-2.0); EOS % 0.1 % (0.0-4.0); GRAN # 7.5 K/mm3 (1.4-6.5); GRAN % 81.5 % (42.2-75.2); HEMATOCRIT 39.3 % (37.0-47.0); HEMOGLOBIN 12.2 g/dl (12.5-16.0); LYMPH # 0.7 K/mm3 (1.2-3.4); LYMPH % 7.2 % (20.0-51.0); MEAN CELL VOLUME 87 fl (80.0-100.0); MEAN CORPUSCULAR HEMOGLOBIN 27 pg (27-31); MEAN CORPUSCULAR HGB CONC 31 g/dl (33.0-37.0); MEAN PLATELET VOLUME 9.7 fl (7.4-10.4); MONO # 0.9 K/mm3 (0.1-0.6); PLATELET COUNT 326 K/mm3 (130-400); RED BLOOD COUNT 4.52 M/mm3 (4.10-5.30); REDCELL DISTRIBUTION WIDTH-CV 14.2 % (11.5-14.5)
[2023-02-26 16:25] LABS: ALBUMIN 3.4 gm/dL (3.4-4.8); BILIRUBIN,TOTAL 0.9 mg/dL (0.2-1.2); CALCIUM 8.8 mg/dL (8.4-10.2); CREATININE, serum 1.7 mg/dL (0.57-1.11); POTASSIUM 4.1 mmol/L (3.5-4.5); TOTAL PROTEIN 6.4 gm/dL (6.2-8.1); TROPONIN-I 0.013 ng/mL (0.00-0.033)
--- NOTE | 2023-02-27 13:01 | NUR ---
Rehabilitation Services Counselor attempted to contact Patient and her contacts in order to follow-up on connecting her with home health services. there was no answer, SW was unable to leave a voicemail.
== END 2023-02-26 15:38 | disposition home or self-care (01) ==
LOC: COL.ER 10:37
PROVIDERS: Personal Emergency Response Attendant
DX: S80.01XA Contusion of right knee, initial encounter (principal); R53.81 Other malaise; M40.205 Unspecified kyphosis, thoracolumbar region; M25.551 Pain in right hip; R79.89 Other specified abnormal findings of blood chemistry; R94.5 Abnormal results of liver function studies; R53.1 Weakness; Z88.5 Allergy status to narcotic agent; Z88.6 Allergy status to analgesic agent; W18.30XA Fall on same level, unspecified, initial encounter; Y92.009 Unspecified place in unspecified non-institutional (private) residence as the place of occurrence of the external cause
CPT/HCPCS: J2270; J7030